=== PATIENT | female | born 1965 | race Caucasian/White ===

== ENCOUNTER 2017-09-24 10:27 | Emergency (ER) | payer OTHER ==
[~2017-09-24] VITALS: Ht 195.6 cm; Wt 65.0 kg
[~2017-09-24 10:27] MED LIST: CEPH-572 PO; CYCL-120 PO; FLUC200T PO; IBUP-1051 PO; NORCO10T PO; PHEN-716 PO; PRED20TA PO
[2017-09-24 10:54] LABS: CLARITY,URINE CLOUDY (Clear); COLOR,URINE ORANGE (Yellow)
[2017-09-24 10:59] LABS: UA COLLECTION TYPE CLN CATCH MIDSTREAM
[2017-09-24 11:03] LABS: BACTERIA,URINE 2+ /HPF (Neg); MUCUS STRANDS FEW /LPF (Neg); RBC,URINE 50-100 /HPF (0-2); SQUAMOUS EPITHELIAL CELL,UR MANY /LPF (FEW); TRICHOMONAS,URINE MOD /HPF (NEGATIVE); WBC,URINE 50-100 /HPF (0-4)
[2017-09-24] MEDS ORDERED: CefTRIAXone 1000mg IM Kit (w/lidocaine diluent) IM ONE (11:55)
[2017-09-24] MEDS ORDERED: azithromycin 250mg tablet PO ONE (11:55)
[2017-09-24] MEDS ORDERED: triamcinolone acetonide 0.1% ointment 15gm TP SCH (12:00)
[2017-09-24 12:40] VITALS: BP 154/64
== END 2017-09-24 12:40 | disposition home or self-care (01) ==
LOC: ER 10:27
DX: N76.0 Acute vaginitis (principal); N89.8 Other specified noninflammatory disorders of vagina; F12.90 Cannabis use, unspecified, uncomplicated; Z90.49 Acquired absence of other specified parts of digestive tract; Z88.2 Allergy status to sulfonamides; Z79.899 Other long term (current) drug therapy
CPT/HCPCS: 81001; 96372; 99283; J0696

== ENCOUNTER 2017-11-22 13:41 | Emergency (ER) | payer OTHER ==
[~2017-11-22] VITALS: Ht 165.1 cm; Wt 65.0 kg
[~2017-11-22 13:41] MED LIST changes: -CEPH-572 PO
[2017-11-22] MEDS ORDERED: TETanus/Pertussis (Acell)/Diphther VAC/PF (Tdap-Adult) 0.5ml syringe IM ONE (14:20)
[2017-11-22] MEDS ORDERED: ibuprofen tablet 400 MG TABLET PO ONE (14:20)
[2017-11-22] MEDS ORDERED: DOXY100C43 PO (14:51)
[2017-11-22 15:14] VITALS: BP 116/79
== END 2017-11-22 15:18 | disposition home or self-care (01) ==
LOC: ER 13:42
DX: L02.416 Cutaneous abscess of left lower limb (principal); F12.90 Cannabis use, unspecified, uncomplicated; Z90.49 Acquired absence of other specified parts of digestive tract; Z98.890 Other specified postprocedural states; Z88.2 Allergy status to sulfonamides; Z79.899 Other long term (current) drug therapy
CPT/HCPCS: 10060; 90471; 90715; 99283; A6449